=== PATIENT | female | born 1990 | race Two or more races ===

== ENCOUNTER 2019-04-03 01:55 | Emergency (ER) | payer OTHER ==
--- NOTE | 2019-04-03 02:36 | PDOC ---
Attending Attestation - Resident Resident Name: Charles Law - ED Attending Attestation I have performed the following: I have examined & evaluated the patient, The case was reviewed & discussed with the resident, I agree w/resident's findings & plan - HPI HPI: 04/03/19 02:47 Pt comes with N/V no diarrhea and she thinks that she was food poisoned. - Physicial Exam PE: 04/08/19 23:03 Pt is afebrile HEENT normal Heart normal Lungs clear abd soft NT ND; minimal diffuse discomfort + gassy normal Bowel sounds. No flank pain Neuro intact. - Medical Decision Making 04/03/19 05:52 Pt has a UTI; she was hydrated here with 2L and she is feeling better. She will be treated with bactrim DS here; she will go home with 1 week supply. follow with PMD
[2019-04-03] MEDS ORDERED: ONDANSETRON 4 MG/2 ML VIAL IVPUSH ONE (02:37)
[2019-04-03] MEDS ORDERED: SODIUM CHLORIDE 0.9% 500 ML INFUS.BAG IV ONE ×2 (02:37→04:02)
--- NOTE | 2019-04-03 02:40 | PDOC ---
History of Present Illness - General Chief Complaint: Nausea/Vomiting Stated Complaint: VOMITING/ETOH INTOX Time Seen by Provider: 04/03/19 02:26 - History of Present Illness Initial Comments: Ms. Harrell is a 29 y/o female with non-contributory PMH presenting with nausea and vomiting since 9pm. Reports vomiting every 30 minutes. Denies fever but reports chills. Reports abdominal cramping. Has not had any diarrhea yet. She went to [facility] earlier today and had several mimosas. No blood in the vomit or stool. Denies dysuria/urinary symptoms. Denies chest pain/shortness of breath. Denies abdominal pain. Past History - Past Medical History Allergies/Adverse Reactions: Allergies Allergy/AdvReac Type Severity Reaction Status Date / Time No Known Allergies Allergy Verified 04/03/19 03:07 Home Medications: Ambulatory Orders Sulfamethoxazole/Trimethoprim [Bactrim Ds Tablet] 1 each PO BID 7 Days #14 tablet 04/03/19 COPD: No - Psycho Social/Smoking Cessation Hx Smoking History: Never smoked Have you smoked in the past 12 months: No Information on smoking cessation initiated: No Hx Alcohol Use: No Drug/Substance Use Hx: No *Physical Exam - Vital Signs Last Vital Signs Temp Pulse Resp BP Pulse Ox 98.0 F 106 H 17 133/75 100 04/03/19 02:05 04/03/19 02:05 04/03/19 02:05 04/03/19 02:05 04/03/19 02:05 ED Treatment Course - LABORATORY CBC & Chemistry Diagram: 04/03/19 03:00 04/03/19 03:00 Medical Decision Making - Medical Decision Making 04/03/19 02:40 29F presenting with nausea and vomiting and abdominal cramping. -cbc, cmp -ua, ucx, upeg -iv fluids, zofran 04/03/19 05:00 Pt reassessed. Reports that symptoms have improved with 2L of fluids and zofran. 04/03/19 05:52 Labs reviewed. UA shows signs of UTI. Laboratory Tests 04/03/19 04/03/19 04/03/19 03:00 03:00 03:00 WBC 15.2 H RBC 5.13 Hgb 13.9 Hct 42.6 MCV 83.0 MCH 27.2 MCHC 32.8 RDW 13.8 Plt Count 236 MPV 10.1 Absolute Neuts (auto) 14.1 H Total Counted 100 Neutrophils % 93.2 H Neutrophils % (Manual) 94.0 H Lymphocytes % 5.2 L Lymphocytes % (Manual) 5.0 L Monocytes % 1.5 L Monocytes % (Manual) 1 L Eosinophils % 0.0 Basophils % 0.1 Nucleated RBC % 0 Platelet Estimate Adequate Platelet Comment No clotting detected Sodium 143 Potassium 4.2 Chloride 109 H Carbon Dioxide 26 Anion Gap 9 BUN 10.4 Creatinine 0.7 Est GFR (CKD-EPI)AfAm 136.66 Est GFR (CKD-EPI)NonAf 117.91 Random Glucose 105 Calcium 8.9 Total Bilirubin 0.4 AST 14 L ALT 22 Alkaline Phosphatase 45 Total Protein 8.0 Albumin 4.1 Urine Color Urine Appearance Urine pH Ur Specific [place] Urine Protein Urine Glucose (UA) Urine Ketones Urine Blood Urine Nitrite Urine Bilirubin Urine Urobilinogen Ur Leukocyte Esterase Urine WBC (Auto) Urine RBC (Auto) Urine Casts (Auto) U Pathogenic Cast Auto U Epithel Cells (Auto) U Sm Round Cell (Auto) Urine Bacteria (Auto) Urine HCG, Qual Negative 04/03/19 03:00 WBC RBC Hgb Hct MCV MCH MCHC RDW Plt Count MPV Absolute Neuts (auto) Total Counted Neutrophils % Neutrophils % (Manual) Lymphocytes % Lymphocytes % (Manual) Monocytes % Monocytes % (Manual) Eosinophils % Basophils % Nucleated RBC % Platelet Estimate Platelet Comment Sodium Potassium Chloride Carbon Dioxide Anion Gap BUN Creatinine Est GFR (CKD-EPI)AfAm Est GFR (CKD-EPI)NonAf Random Glucose Calcium Total Bilirubin AST ALT Alkaline Phosphatase Total Protein Albumin Urine Color Yellow Urine Appearance Cloudy Urine pH 7.5 Ur Specific [place] 1.025 Urine Protein Trace Urine Glucose (UA) Negative Urine Ketones 1+ H Urine Blood Negative Urine Nitrite Negative Urine Bilirubin Negative Urine Urobilinogen 0.2 Ur Leukocyte Esterase 2+ H Urine WBC (Auto) 73 Urine RBC (Auto) 3 Urine Casts (Auto) 50 U Pathogenic Cast Auto None U Epithel Cells (Auto) 15.8 U Sm Round Cell (Auto) None Urine Bacteria (Auto) 699.8 Urine HCG, Qual Will give 1 Bactrim DS here and d/c home with 1 tab Bactrim BID for 1 week. Discharge - Discharge Information Problems reviewed: Yes Clinical Impression/Diagnosis: Urinary tract infection Qualifiers: Hematuria presence: without hematuria Condition: Stable Disposition: HOME - Admission No - Additional Discharge Information Prescriptions: Sulfamethoxazole/Trimethoprim [Bactrim Ds Tablet] 1 each PO BID 7 Days #14 tablet - Follow up/Referral Referrals: Yohannes Christensen MD [Non Staff, Medical] - - Patient Discharge Instructions Patient Printed Discharge Instructions: DI for Urinary Tract Infection (UTI), DI for Vomiting -- Adult Additional Instructions: Please take Bactrim 1 tab twice per day for 7 days. Please make a follow up appointment with your primary care doctor. If you experience any new, worsening, or concerning symptoms, please return to the emergency department. - Post Discharge Activity
[2019-04-03 03:00] VITALS: BP 133/75; PULSE 106; TEMP 98; BMI 24.7
[2019-04-03 03:54] LABS: MCHC 32.8 g/dl (32.0-36.0); MEAN PLT VOLUME 10.1 fl (7.5-11.1)
[2019-04-03 04:04] LABS: BASO % 0.1 % (0-2.0); HEMATOCRIT 42.6 % (32.4-45.2); HEMOGLOBIN 13.9 GM/dL (10.7-15.3); LYMPH % 5.2 % (8-40); MCH 27.2 pg (25.7-33.7); MONO % 1.5 % (3.8-10.2); NEUT % 93.2 % (42.8-82.8); PLATELET COUNT 236 K/MM3 (134-434); RBC 5.13 M/mm3 (3.60-5.2); RDW 13.8 % (11.6-15.6); WHITE BLOOD COUNT 15.2 K/mm3 (4.0-10.0)
[2019-04-03 04:19] LABS: ALBUMIN 4.1 g/dl (3.4-5.0); BILIRUBIN,TOTAL 0.4 mg/dL (0.2-1); BLOOD UREA NITROGEN 10.4 mg/dL (7-18); CALCIUM 8.9 mg/dL (8.5-10.1); CREATININE 0.7 mg/dL (0.55-1.3); POTASSIUM 4.2 mmol/L (3.5-5.1)
[2019-04-03 04:45] LABS: PLATELET ESTIMATE ADEQUATE
[2019-04-03 05:20] LABS: EPI CELLS 15.8 /HPF (0-5/HPF); HYALINE CASTS 50 /lpf (0-8); PH,URINE 7.5 (5.0-8.0); URINE APPEARANCE CLOUDY; URINE BACTERIA 699.8 /hpf (NEGATIVE); URINE BILIRUBIN NEGATIVE (NEGATIVE); URINE COLOR YELLOW; URINE GLUCOSE (UA) NEGATIVE (NEGATIVE); URINE KETONE 1+ (NEGATIVE); URINE LEUK ESTERASE 2+ (NEGATIVE); URINE NITRITE NEGATIVE (NEGATIVE); URINE PROTEIN TRACE (NEGATIVE); URINE RBC 3 /hpf (0-4); URINE UROBILINOGEN 0.2 mg/dL (0.2-1.0); URINE WBC 73 /hpf (0-5)
[2019-04-03] MEDS ORDERED: SULFAMETHOXAZOLE/TRIMETHOPRIM 800MG/160MG D.S. TABLET PO ONE (05:52)
[2019-04-03] MEDS ORDERED: SULFAMETHOXAZOLE/TRIMETHOPRIM 800MG/160MG D.S. TABLET ONE (05:54)
== END 2019-04-03 06:22 | disposition home or self-care (01) ==
LOC: JER 01:55
PROC: 3E033GC Introduction of Other Therapeutic Substance into Peripheral Vein, Percutaneous Approach (ICD-10-PCS; principal; 2019-04-03)
PROC: 3E0337Z Introduction of Electrolytic and Water Balance Substance into Peripheral Vein, Percutaneous Approach (ICD-10-PCS; 2019-04-03)
DX: R31.9 Hematuria, unspecified (principal)
CPT/HCPCS: 36415; 80053; 81003; 84703; 85025; 87086; 99283-25